=== PATIENT | male | born 1930 | race Caucasian/White ===

== ENCOUNTER 2018-07-11 11:44 | Emergency (ER) | payer OTHER ==
[2018-07-11 13:04] LABS: Protime INR 1.19
[2018-07-11 13:07] LABS: Absolute Lymphocytes (CBC) 1.4 K/uL (0.7-4.9); Absolute Monocytes 1.6 K/uL (0.1-1.3); Absolute Neutrophil 2.1 K/uL (1.8-8.0); Basophils % 0.3 % (0-1.3); Eosinophils % 2.2 % (0-4.4); Hematocrit 25.4 % (39.6-49.0); Lymphocytes % 26.2 % (15.3-44.8); MPV 8.7 fL (7.6-11.3); Monocytes % 31.4 % (3.3-12.3); RBC Red Blood Cell Count 3.27 M/uL (4.33-5.43)
[2018-07-11 13:21] LABS: ALT/SGPT 15 U/L (12-78); AST/SGOT 16 U/L (15-37); Alkaline Phosphatase 72 U/L (45-117); BUN Blood Urea Nitrogen 26 mg/dL (7-18); Bicarbonate 27 mmol/L (21-32); Bilirubin Direct 0.2 mg/dL (0-0.2); Bilirubin Total 0.5 mg/dL (0.2-1.0); Glucose Level 105 mg/dL (74-106); NT PRO-BNP 4991 pg/mL (<450); Potassium 4.8 mmol/L (3.5-5.1); Sodium Level 139 mmol/L (136-145); Troponin (Emerg Dept Use Only) < 0.02 ng/mL (0.0-0.045)
--- NOTE | 2018-07-11 13:23 | RAD REPORT ---
EXAM DESCRIPTION: CT - Head Brain Wo Cont - 07/11/2018 12:58 pm CLINICAL HISTORY: Near syncope Headache, syncope, drowsiness COMPARISON: Head angio dated 01/03/2017; Head Brain Wo Cont dated 01/01/2017 TECHNIQUE: All CT scans are performed using dose optimization technique as appropriate and may inclu de automated exposure control or mA/KV adjustment according to patient size. 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 The paranasal sinuses and mastoids are clear. The calvarium is intact. IMPRESSION: No acute intracranial abnormality. 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
[2018-07-11 13:40] LABS: Anisocytosis 3+; Blood Morphology Comment NOTED (NOT SEEN); Hypochromasia 2+; Platelet Estimate DECR
[2018-07-11] MEDS ORDERED: NA CHLORIDE 0.9% 1,000 ML ONE (13:53)
--- NOTE | 2018-07-11 14:03 | RAD REPORT ---
EXAM DESCRIPTION: Miguelina Single View07/11/2018 1:38 pm CLINICAL HISTORY: Chest pain COMPARISON: 2017 FINDINGS: The lungs appear clear of acute infiltrate. The heart is normal size. A battery pack over lies the left chest IMPRESSION: No acute abnormalities displayed
--- NOTE | 2018-07-11 15:42 | EDPHYS ---
Physician Documentation [facility] Name: Avtar Hanley Age: 87 yrs Sex: Male : 1930 Arrival Date: 07/11/2018 Time: 12:09 Bed 5 Private MD: ED Physician Malcom Sargent HPI: 07/11 13:00 This 87 yrs old Male presents to ER via EMS with complaints of Near Syncope. pm1 13:06 The patient has experienced near-syncope, felt faint. Onset: The symptoms/episode pm1 began/occurred just prior to arrival. Duration: This was a single episode. Context: the episode(s) was witnessed, [facility] and reported to the ER with near syncopal event with hypotension, occurred while the patient was sitting, Just prior to the episode the patient experienced no apparent symptoms. Associated injury: The patient did not suffer any apparent associated injury. Associated signs and symptoms: Pertinent negatives: abdominal pain, blurred vision, chest pain, diaphoresis, headache, palpitations, shortness of breath. Current symptoms: Currently, the patient is not experiencing any symptoms. The patient has been recently seen by a physician: the patient's primary care provider, with different complaint(s), near syncopal event happened while checking out from PCP office. Patient just released from rehab center. Patient has not been eating or drinking well per patient and family at the rehab center. Historical: - Allergies: 12:20 No Known Allergies; hb - Home Meds: 12:20 aspirin 81 mg Oral TbEC 1 tab once daily [Active]; hydrochlorothiazide 25 mg Oral tab 1 hb tab once daily [Active]; hydroxyurea 500 mg Oral cap every 3 days [Active]; losartan 100 mg Oral tab 1 tab once daily [Active]; magnesium oxide 400 mg Oral tab nightly [Active]; omeprazole 20 mg Oral cpDR 1 cap once daily [Active]; Vitamin B-12 100 mcg Oral tab daily [Active]; doxycycline hyclate 100 mg Oral cap twice a day [Active]; metoprolol tartrate 25 mg Oral tab 0.5 tab 2 times per day [Active]; loratadine 10 mg oral tab 1 tab once daily [Active]; phytonadione (vitamin K1) oral daily [Active]; ranitidine HCl 150 mg Oral cap 1 cap once daily [Active]; rifampin 300 mg Oral cap 2 times per day [Active]; rosuvastatin 5 mg oral tab 1 tab once daily [Active]; sildenafil 20 mg oral tab [Active]; - PMHx: 12:20 Hypertension; hb - PSHx: 12:20 None; hb - Immunization history:: Adult Immunizations up to date. - Social history:: Smoking status: Patient/guardian denies using tobacco. - Ebola Screening: : No symptoms or risks identified at this time. ROS: 13:06 Constitutional: Negative for fever, chills, and weight loss, Eyes: Negative for injury, pm1 pain, redness, and discharge, ENT: Negative for injury, pain, and discharge, Neck: Negative for injury, pain, and swelling, Cardiovascular: Negative for chest pain, palpitations, and edema, Respiratory: Negative for shortness of breath, cough, wheezing, and pleuritic chest pain, Abdomen/GI: Negative for abdominal pain, nausea, vomiting, diarrhea, and constipation, Back: Negative for injury and pain, : Negative for injury, bleeding, discharge, and swelling, MS/Extremity: Negative for injury and deformity, Skin: Negative for injury, rash, and discoloration. 13:06 Neuro: Positive for near syncope, Negative for dizziness, headache, loss of consciousness. Exam: 13:06 Abdomen/GI: Inspection: abdomen appears normal, Bowel sounds: normal, Palpation: pm1 abdomen is soft and non-tender, in all quadrants. 13:06 Constitutional: This is a well developed, well nourished patient who is awake, alert, and in no acute distress. Head/Face: Normocephalic, atraumatic. Eyes: Pupils equal round and reactive to light, extra-ocular motions intact. Lids and lashes normal. Conjunctiva and sclera are non-icteric and not injected. Cornea within normal limits. Periorbital areas with no swelling, redness, or edema. ENT: Nares patent. No nasal discharge, no septal abnormalities noted. Tympanic membranes are normal and external auditory canals are clear. Oropharynx with no redness, swelling, or masses, exudates, or evidence of obstruction, uvula midline. Mucous membranes moist. Neck: Trachea midline, no thyromegaly or masses palpated, and no cervical lymphadenopathy. Supple, full range of motion without nuchal rigidity, or vertebral point tenderness. No Meningismus. Chest/axilla: Normal chest wall appearance and motion. Nontender with no deformity. No lesions are appreciated. Cardiovascular: Regular rate and rhythm with a normal S1 and S2. No gallops, murmurs, or rubs. Normal PMI, no JVD. No pulse deficits. Respiratory: Lungs have equal breath sounds bilaterally, clear to auscultation and percussion. No rales, rhonchi or wheezes noted. No increased work of breathing, no retractions or nasal flaring. Back: No spinal tenderness. No costovertebral tenderness. Full range of motion. Skin: Warm, dry with normal turgor. Normal color with no rashes, no lesions, and no evidence of cellulitis. MS/ Extremity: Pulses equal, no cyanosis. Neurovascular intact. Full, normal range of motion. 13:06 Neuro: Orientation: is normal, Cerebellar function: normal finger to nose testing, Motor: moves all fours, Sensation: no obvious gross deficits. Vital Signs: 12:10 BP 119 / 49; Pulse 64; Resp 16; Temp 98.2; Pulse Ox 100% on R/A; Pain 0/10; hb 12:45 BP 143 / 55; Pulse 64; Resp 15; Pulse Ox 100% on R/A; hb 12:55 BP 143 / 55 Supine; Pulse 68; hb 13:05 BP 98 / 34 Sitting; Pulse 81; hb 13:10 BP 89 / 39 Standing; Pulse 89; hb 14:15 BP 167 / 73 Supine; Pulse 79; hb 14:20 BP 136 / 75 Standing; Pulse 92; hb 14:25 BP 157 / 63 Sitting; Pulse 85; hb MDM: 12:16 Patient medically screened. pm1 14:22 ED course: Patient with known bladder cancer diagnosed 2 months ago. Surgical removal pm1 performed at the [facility] but patient is not a candidate for chemotherapy or radiation therapy. Also with know recent anemia. Currently taking iron supplementation. Denies any rectal bleeding or dark stool. 15:39 Data reviewed: vital signs. Data interpreted: Pulse oximetry: on room air is 100 %. pm1 Interpretation: normal. Counseling: I had a detailed discussion with the patient and/or guardian regarding: the historical points, exam findings, and any diagnostic results supporting the discharge/admit diagnosis, lab results, radiology results, the need for outpatient follow up, to return to the emergency department if symptoms worsen or persist or if there are any questions or concerns that arise at home. 07/11 12:39 Order name: Basic Metabolic Panel; Complete Time: 13:33 pm07/11 12:39 Order name: CBC with Diff pm07/11 12:39 Order name: LFT's; Complete Time: 13:33 pm07/11 12:39 Order name: Magnesium; Complete Time: 13:33 pm07/11 12:39 Order name: NT PRO-BNP; Complete Time: 13:33 pm07/11 12:39 Order name: PT-INR; Complete Time: 13:15 pm07/11 12:39 Order name: CT Head Brain wo Cont; Complete Time: 13:33 pm07/11 12:39 Order name: Troponin (emerg Dept Use Only); Complete Time: 13:33 pm07/11 12:39 Order name: XRAY Chest (1 view); Complete Time: 14:09 pm07/11 12:39 Order name: EKG; Complete Time: 12:41 pm07/11 12:39 Order name: Cardiac monitoring; Complete Time: 13:08 pm07/11 12:39 Order name: EKG - Nurse/Tech; Complete Time: 12:57 pm07/11 13:34 Order name: Manual Differential EDMS 07/11 12:39 Order name: IV Saline Lock; Complete Time: 12:57 pm07/11 12:39 Order name: Labs collected and sent; Complete Time: 12:57 pm07/11 12:39 Order name: O2 Per Protocol; Complete Time: 13:17 pm07/11 12:39 Order name: O2 Sat Monitoring; Complete Time: 13:17 pm07/11 12:39 Order name: Orthostatic Blood Pressure; Complete Time: 13:14 pm07/11 14:25 Order name: Orthostatic Blood Pressure; Complete Time: 14:38 pm1 Administered Medications: 12:35 Drug: NS 0.9% 1000 ml Route: IV; Rate: 1000 ml; Site: right antecubital; hb 13:40 Follow up: Response: No adverse reaction; IV Status: Completed infusion; IV Intake: hb 1000ml Disposition: 07/11/18 15:41 Discharged to Home. Impression: Dehydration, Syncope and collapse. - Condition is Stable. - Discharge Instructions: Dehydration, Elderly, Near-Syncope, Rehydration, Elderly. - Medication Reconciliation Form, Thank You Letter, Antibiotic Education, Prescription Opioid Use form. - Follow up: Emergency Department; When: As needed; Reason: Worsening of condition. Follow up: Private Physician; When: 2 - 3 days; Reason: Recheck today's complaints, Continuance of care, Re-evaluation by your physician. - Problem is new. - Symptoms have improved. Addendum: 07/16/2018 10:32 Co-signature as Attending Physician, Malcom Sargent MD I agree with the assessment and k dr plan of care. Signatures: Dispatcher [employer] EDMS Malcom Sargent MD MD kdr Michael Holley NP ASSISTANT DEAN OF STUDENTS pm1 Nika Evans RN RN hb Corrections: (The following items were deleted from the chart) 07/11 16:07 15:41 07/11/2018 15:41 Discharged to Home. Impression: Dehydration; Syncope and hb collapse. Condition is Stable. Forms are Medication Reconciliation Form, Thank You Letter, Antibiotic Education, Prescription Opioid Use. Follow up: Emergency Department; When: As needed; Reason: Worsening of condition. Follow up: Private Physician; When: 2 - 3 days; Reason: Recheck today's complaints, Continuance of care, Re-evaluation by your physician. Problem is new. Symptoms have improved. pm1
--- NOTE | 2018-07-11 15:42 | ER ---
Nurse's Notes [facility] Name: Avtar Hanley Age: 87 yrs Sex: Male : 1930 Arrival Date: 07/11/2018 Time: 12:09 Bed 5 Private MD: Diagnosis: Dehydration;Syncope and collapse Presentation: 07/11 12:10 Presenting complaint: EMS states: Near syncopal episode while sitting in wheelchair at the [facility]. BGL 98, VS WNL. VAN NEGATIVE. Transition of care: patient was not received from another setting of care. Onset of symptoms was July 11, 2018. Risk Assessment: Do you want to hurt yourself or someone else? Patient reports no desire to harm self or others. Initial Sepsis Screen: Does the patient meet any 2 criteria? No. Patient's initial sepsis screen is negative. Does the patient have a suspected source of infection? No. Patient's initial sepsis screen is negative. Care prior to arrival: None. 12:10 Method Of Arrival: EMS: [facility] 12:10 Acuity: KEIRA 3 Triage Assessment: 12:15 General: Appears in no apparent distress. Behavior is calm, cooperative. Pain: Denies hb pain. EENT: No deficits noted. No signs and/or symptoms were reported regarding the EENT system. Neuro: Level of Consciousness is awake, alert, obeys commands, Oriented to person, place, time, situation. Cardiovascular: Heart tones S1 S2 present Capillary refill < 3 seconds Patient's skin is warm and dry. Respiratory: Airway is patent Respiratory effort is even, unlabored, Respiratory pattern is regular, symmetrical, Breath sounds are clear bilaterally. GI: No signs and/or symptoms were reported involving the gastrointestinal system. : No signs and/or symptoms were reported regarding the genitourinary system. Derm: Skin is intact, is healthy with good turgor. Musculoskeletal: No signs and/or symptoms reported regarding the musculoskeletal system. Historical: - Allergies: 12:20 No Known Allergies; hb - Home Meds: 12:20 aspirin 81 mg Oral TbEC 1 tab once daily [Active]; hydrochlorothiazide 25 mg Oral tab 1 hb tab once daily [Active]; hydroxyurea 500 mg Oral cap every 3 days [Active]; losartan 100 mg Oral tab 1 tab once daily [Active]; magnesium oxide 400 mg Oral tab nightly [Active]; omeprazole 20 mg Oral cpDR 1 cap once daily [Active]; Vitamin B-12 100 mcg Oral tab daily [Active]; doxycycline hyclate 100 mg Oral cap twice a day [Active]; metoprolol tartrate 25 mg Oral tab 0.5 tab 2 times per day [Active]; loratadine 10 mg oral tab 1 tab once daily [Active]; phytonadione (vitamin K1) oral daily [Active]; ranitidine HCl 150 mg Oral cap 1 cap once daily [Active]; rifampin 300 mg Oral cap 2 times per day [Active]; rosuvastatin 5 mg oral tab 1 tab once daily [Active]; sildenafil 20 mg oral tab [Active]; - PMHx: 12:20 Hypertension; hb - PSHx: 12:20 None; hb - Immunization history:: Adult Immunizations up to date. - Social history:: Smoking status: Patient/guardian denies using tobacco. - Ebola Screening: : No symptoms or risks identified at this time. Screenin:30 Abuse screen: Denies threats or abuse. Denies injuries from another. Nutritional hb screening: No deficits noted. Tuberculosis screening: No symptoms or risk factors identified. Fall Risk Total Emery Fall Scale indicates Low Risk Score (25-44 pts). Fall prevention measures have been instituted. Side Rails Up X 2 Frequent Obs/Assesments occuring Family Present and informed to notify staff if they need to leave bedside As available Patient and Family Educated on Fall Prevention Program and strategies. Assessment: 12:15 General: SEE TRIAGE ASSESSMENT. hb 13:00 Reassessment: Patient appears in no apparent distress at this time. Patient and/or hb family updated on plan of care and expected duration. Pain level reassessed. Patient is alert, oriented x 3, equal unlabored respirations, skin warm/dry/pink. 14:00 Reassessment: Patient appears in no apparent distress at this time. Patient and/or hb family updated on plan of care and expected duration. Pain level reassessed. Patient is alert, oriented x 3, equal unlabored respirations, skin warm/dry/pink. 15:00 Reassessment: Patient appears in no apparent distress at this time. Patient and/or hb family updated on plan of care and expected duration. Pain level reassessed. Patient is alert, oriented x 3, equal unlabored respirations, skin warm/dry/pink. Patient denies pain at this time. Patient states symptoms have improved. Vital Signs: 12:10 BP 119 / 49; Pulse 64; Resp 16; Temp 98.2; Pulse Ox 100% on R/A; Pain 0/10; hb 12:45 BP 143 / 55; Pulse 64; Resp 15; Pulse Ox 100% on R/A; hb 12:55 BP 143 / 55 Supine; Pulse 68; hb 13:05 BP 98 / 34 Sitting; Pulse 81; hb 13:10 BP 89 / 39 Standing; Pulse 89; hb 14:15 BP 167 / 73 Supine; Pulse 79; hb 14:20 BP 136 / 75 Standing; Pulse 92; hb 14:25 BP 157 / 63 Sitting; Pulse 85; hb ED Course: 12:09 Patient arrived in ED. hb 12:11 Triage completed. hb 12:11 Arm band placed on. hb 12:15 Patient has correct armband on for positive identification. Bed in low position. Call hb light in reach. Side rails up X2. 12:16 Michael Holley NP is PHCP. pm1 12:16 Malcom Sargent MD is Attending Physician. pm1 12:54 EKG done, by audio/video technician. reviewed by Michael Holley NP. at1 12:57 Initial lab(s) drawn, by nc, sent to lab. Inserted saline lock: 20 gauge in right em1 antecubital area, using aseptic technique. Blood collected. 12:58 CT Head Brain wo Cont In Process Unspecified. EDMS 13:01 Nika Evans, RN is Primary Nurse. hb 13:38 XRAY Chest (1 view) In Process Unspecified. EDMS 16:05 No provider procedures requiring assistance completed. IV discontinued, intact, hb bleeding controlled, No redness/swelling at site. Pressure dressing applied. Administered Medications: 12:35 Drug: NS 0.9% 1000 ml Route: IV; Rate: 1000 ml; Site: right antecubital; hb 13:40 Follow up: Response: No adverse reaction; IV Status: Completed infusion; IV Intake: hb 1000ml Intake: 13:40 IV: 1000ml; Total: 1000ml. hb Outcome: 15:41 Discharge ordered by . pm1 16:05 Discharged to home via wheelchair, with family. hb 16:05 Condition: stable 16:05 Discharge instructions given to patient, family, Instructed on discharge instructions, follow up and referral plans. medication usage, Demonstrated understanding of instructions, follow-up care, medications. 16:07 Patient left the ED. hb Signatures: Dispatcher [employer] EDMS Tien Ceja em1 Louisa Barth, migration agent EKG Tat1 Michael Holley, SHELL SHOP SUPERVISOR SHELL SHOP SUPERVISOR pm1 Nika Evans, RN RN hb Corrections: (The following items were deleted from the chart) 12:21 12:10 Presenting complaint: EMS states: Near syncopal episode while sitting in hb wheelchair at the [facility]. BGL 98, VS WNL. hb 13:16 13:00 BP 143 / 55; Pulse 64bpm; Resp 15bpm; Pulse Ox 100% RA; hb hb
--- NOTE | 2018-07-12 06:44 | EKG ---
Test Date: 2018-07-11 Test Time: 12:49:18 Belt Cutter: LALITO MEASUREMENT RESULTS: Intervals: Rate: 70 WV: 124 QRSD: 132 QT: 454 QTc: 490 [place]: P: 69 WV: 124 QRS: 57 T: -22 INTERPRETIVE STATEMENTS: Sinus rhythm with premature atrial complexes Right bundle branch block Abnormal ECG Compared to ECG 01/01/2017 09:53:40 Atrial premature complex(es) now present Sinus bradycardia no longer present Electronically Signed On 07-12-18 06:42:34 CDT by Bret Hennessy
== END 2018-07-11 16:07 | disposition home or self-care (01) ==
LOC: ER 11:44
DX: E86.0 Dehydration (principal); R55 Syncope and collapse; I10 Essential (primary) hypertension; Z79.82 Long term (current) use of aspirin
CPT/HCPCS: 36415; 70450; 71045; 80048; 80076; 83735; 83880; 84484; 85025; 85610; 93005; 96360; 99284; J7030

== ENCOUNTER 2018-08-17 09:44 | Emergency (ER) | payer OTHER ==
[2018-08-17 10:49] LABS: Protime INR 1.33
[2018-08-17] MEDS ORDERED: NA CHLORIDE 0.9% 500 ML ONE (10:53)
[2018-08-17] MEDS ORDERED: ASPIRIN 81 MG CHEWABLE TABLET ONE (10:53)
--- NOTE | 2018-08-17 11:01 | RAD REPORT ---
EXAM DESCRIPTION: CT - Head Brain Wo Cont - 08/17/2018 10:40 am CLINICAL HISTORY: WEAKNESS Headache, drowsiness COMPARISON: Head Brain Wo Cont dated 07/11/2018; Head angio dated 01/03/2017 TECHNIQUE: All CT scans are performed using dose optimization technique as appropriate and may inclu de automated exposure control or mA/KV adjustment according to patient size. FINDINGS: No intracranial hemorrhage, hydrocephalus or extra-axial fluid collection.No areas of brai n edema or evidence of midline shift. 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 The paranasal sinuses and mastoids are clear. The calvarium is intact. Vertebral arteries are calcifi ed. IMPRESSION: No acute intracranial abnormality.
[2018-08-17 11:18] LABS: Absolute Lymphocytes (CBC) 5.6 K/uL (0.7-4.9); Absolute Monocytes 50.1 K/uL (0.1-1.3); Absolute Neutrophil 0.9 K/uL (1.8-8.0); Eosinophils % 0.4 % (0-4.4); Hematocrit 22.2 % (39.6-49.0); Lymphocytes % 9.9 % (15.3-44.8); MPV 7.2 fL (7.6-11.3); Monocytes % 88.1 % (3.3-12.3); RBC Red Blood Cell Count 2.75 M/uL (4.33-5.43)
[2018-08-17 11:22] LABS: Bilirubin Direct 0.3 mg/dL (0-0.2); Bilirubin Total 1.3 mg/dL (0.2-1.0); Magnesium 1.7 mg/dL (1.8-2.4); Potassium 4.9 mmol/L (3.5-5.1)
[2018-08-17 11:23] LABS: Troponin (Emerg Dept Use Only) 0.98 ng/mL (0.0-0.045)
--- NOTE | 2018-08-17 12:03 | RAD REPORT ---
EXAM DESCRIPTION: RAD - Chest Single View - 08/17/2018 11:43 am CLINICAL HISTORY: CHEST PAIN Chest pain. COMPARISON: Chest Single View dated 07/11/2018; Chest Single View dated 01/01/2017 FINDINGS: Portable technique limits examination quality. The lungs are grossly clear. The heart is moderately enlarged in size with aortic atherosclerosis not ed. No displaced fractures. IMPRESSION: No acute intrathoracic process suspected.
[2018-08-17] MEDS ORDERED: MAGNESIUM SULFATE 1 gm IVPB 1 GM/100 ML BAG IV ONE (12:09)
[2018-08-17] MEDS ORDERED: NA CHLORIDE 0.9% 1,000 ML ONE (12:09)
--- NOTE | 2018-08-17 13:12 | EDPHYS ---
Physician Documentation [facility] Name: Avtar Hanley Age: 88 yrs Sex: Male : 1930 Arrival Date: 08/17/2018 Time: 09:45 Bed 5 Private MD: ED Physician Malocm Sargent HPI: 08/17 10:00 This 88 yrs old Male presents to ER via Wheelchair with complaints of jmm Shortness Of Breath, Chest Pain, Palpitations. 10:00 Onset: The symptoms/episode began/occurred this morning, at 06:00. Duration: The jmm symptoms are continuous. This is an 88 year old male with a history of anemia, bladder cancer, htn, cva, renal insufficiency that presents to the ED with complaints of chest pain beginning this morning. Patient has had ongoing weakness and shortness of breath due to anemia. . 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 - Social history:: Smoking status: Patient/guardian denies using tobacco. - Ebola Screening: : No symptoms or risks identified at this time. ROS: 10:37 Constitutional: Negative for fever, chills, and weight loss. jmm 10:37 Cardiovascular: Positive for chest pain. 10:37 Respiratory: Positive for shortness of breath. 10:37 Neuro: Positive for weakness. 10:37 All other systems are negative. Exam: 10:37 Constitutional: This is a well developed, well nourished patient who is awake, alert, jmm and in no acute distress. Head/Face: atraumatic. Eyes: EOMI, no conjunctival erythema appreciated ENT: Moist Mucus Membranes Neck: Trachea midline, Supple Chest/axilla: Normal chest wall appearance and motion. 10:37 Cardiovascular: Rate: normal, Rhythm: regular. 10:37 Respiratory: the patient does not display signs of respiratory distress, Respirations: normal, Breath sounds: are clear throughout. 10:37 Abdomen/GI: Inspection: abdomen appears normal. 10:37 Back: pain, is absent. 10:37 Musculoskeletal/extremity: ROM: intact in all extremities. 10:37 Skin: Appearance: Color: normal in color. 10:37 Neuro: Orientation: is normal, Mentation: is normal, Memory: is normal. 10:37 Psych: Behavior/mood is pleasant, cooperative. 11:56 ECG was reviewed by the Attending Physician. [facility] Vital Signs: 09:53 BP 95 / 42; Pulse 97; Resp 16; Pulse Ox 100% on R/A; Weight 63.96 kg; Height 5 ft. 9 la1 in. (175.26 cm); 10:31 BP 98 / 47; Pulse 83; Resp 21; Pulse Ox 96% ; bp 11:07 BP 80 / 38; Pulse 74; Resp 16; Temp 97.7; Pulse Ox 97% on R/A; la1 11:45 BP 108 / 34; Pulse 79; Resp 16; Pulse Ox 96% on R/A; la1 12:46 BP 97 / 41; Pulse 77; Resp 16; Pulse Ox 95% on R/A; la1 13:31 BP 92 / 41; Pulse 75; Resp 18; Pulse Ox 96% on R/A; la1 14:06 BP 99 / 44; Pulse 77; Resp 16; Pulse Ox 94% on R/A; la1 09:53 Body Mass Index 20.82 (63.96 kg, 175.26 cm) la1 MDM: 10:17 Patient medically screened. [facility] 11:53 Data reviewed: vital signs, nurses notes, lab test result(s), EKG. Counseling: I had a [facility] detailed discussion with the patient and/or guardian regarding: the historical points, exam findings, and any diagnostic results supporting the discharge/admit diagnosis, radiology results, the need to transfer to another facility. ED course: Pain is relieved in the ED. ASA administered. VS stable. H/H is wnl according to the family. Guac is negative. . 13:09 Data reviewed: radiologic studies, plain films. ED course: I discussed the patient with [facility] Dr. Burton whom accepted transfer. 08/17 10:17 Order name: Basic Metabolic Panel; Complete Time: 11:32 [facility] 08/17 10:17 Order name: CBC with Diff [facility] 08/17 11:36 Interpretation: WBC 56.9. [facility] 08/17 10:17 Order name: LFT's; Complete Time: 11:32 [facility] 08/17 10:17 Order name: Magnesium; Complete Time: 11:32 [facility] 08/17 10:17 Order name: NT PRO-BNP; Complete Time: 11:32 [facility] 08/17 10:17 Order name: PT-INR; Complete Time: 11:16 [facility] 08/17 10:17 Order name: Troponin (emerg Dept Use Only); Complete Time: 11:32 [facility] 08/17 10:17 Order name: XRAY Chest (1 view); Complete Time: 12:05 [facility] 08/17 10:17 Order name: Type And Screen; Complete Time: 12:22 [facility] 08/17 10:17 Order name: CT Head Brain wo Cont; Complete Time: 11:03 [facility] 08/17 10:19 Order name: Occult Blood--Ancillary; Complete Time: 11:01 08/17 11:21 Order name: Manual Differential [facility] 08/17 12:31 Order name: ABO/RH no charge; Complete Time: 14:19 [facility] 08/17 10:17 Order name: EKG; Complete Time: 10:19 [facility] 08/17 10:17 Order name: Cardiac monitoring; Complete Time: 10:18 [facility] 08/17 10:17 Order name: EKG - Nurse/Tech; Complete Time: 10:18 [facility] 08/17 10:17 Order name: IV Saline Lock; Complete Time: 10:41 [facility] 08/17 10:17 Order name: Labs collected and sent; Complete Time: 10:41 [facility] 08/17 10:17 Order name: O2 Per Protocol; Complete Time: 10:41 [facility] 08/17 10:17 Order name: O2 Sat Monitoring; Complete Time: 10:41 [facility] EC:56 Rate is 97 beats/min. Rhythm is regular. QRS [place] is Normal. QT interval is normal. T jmm waves are Inverted in leads V1, V2. No ST changes noted. Administered Medications: 11:00 Drug: Aspirin Chewable Tablet 324 mg Route: PO; la1 14:08 Follow up: Response: No adverse reaction la1 11:00 Drug: NS 0.9% 500 ml Route: IV; Rate: bolus; Site: right forearm; la1 12:00 Follow up: IV Status: Completed infusion; IV Intake: 500ml la1 12:00 Drug: NS 0.9% 1000 ml Route: IV; Rate: 75 ml/hr; Site: right forearm; la1 14:09 Follow up: IV Status: Infusion continued upon transfer la1 12:01 Drug: Magnesium Sulfate 1 grams Route: IVPB; Infused Over: 1 hrs; Site: right forearm; la1 13:00 Follow up: IV Status: Completed infusion; IV Intake: 100ml la1 Disposition: 08/17/18 13:11 Transfer ordered to [facility]. Diagnosis are Non-ST elevation (NSTEMI) myocardial infarction, Acute Leukemia. - Reason for transfer: Higher level of care. - Accepting physician is Dr. Quevedo. - Condition is Stable. - Problem is new. - Symptoms have improved. Addendum: 08/19/2018 06:52 Co-signature as Attending Physician, Malcom Sargent MD I agree with the assessment and k dr plan of care. Signatures: Dispatcher [employer] EDMS Malcom Sargent MD MD [facility] Harris Gonzalez PA PA [facility] Tino Garcia RN RN la1 Corrections: (The following items were deleted from the chart) 08/17 10:38 10:00 This is an 88 year old male with a history of anemia, bladder cancer, htn, cva, jmm renal insufficiency that presents to the ED with complaints of chest pain beginning this morning. Patient has had ongoing weakness and shortness of breath due to anemia. Patient recently received an epo.. [facility] 12: 11:04 Urine Dipstick-Ancillary ordered. [place] [id number] 14:34 13:11 08/17/2018 13:11 Transfer ordered to [address] Diagnosis is Non-ST elevation (NSTEMI) myocardial infarction; Acute Leukemia. Reason for transfer: Higher level of care. Accepting physician is Dr. Quevedo. Condition is Stable. Problem is new. Symptoms have improved. [facility]
--- NOTE | 2018-08-17 13:12 | ER ---
Nurse's Notes [facility] Name: Avtar Hanley Age: 88 yrs Sex: Male : 1930 Arrival Date: 08/17/2018 Time: 09:45 Bed 5 Private MD: Diagnosis: Non-ST elevation (NSTEMI) myocardial infarction;Acute Leukemia Presentation: 08/17 09:52 Presenting complaint: Patient states: Chest pain and SOB since 0600 this morning. la1 Transition of care: patient was not received from another setting of care. Onset of symptoms was August 17, 2018. Risk Assessment: Do you want to hurt yourself or someone else? Patient reports no desire to harm self or others. Initial Sepsis Screen: Does the patient meet any 2 criteria? No. Patient's initial sepsis screen is negative. Does the patient have a suspected source of infection? No. Patient's initial sepsis screen is negative. Care prior to arrival: None. 09:52 Method Of Arrival: Wheelchair la1 09:52 Acuity: KEIRA 2 la1 Triage Assessment: 09:53 General: Appears in no apparent distress. uncomfortable, slender, Behavior is bp cooperative, appropriate for age, anxious. Pain: Complains of pain in chest. EENT: No deficits noted. Neuro: Level of Consciousness is awake, alert, obeys commands, Oriented to Appropriate for age. Cardiovascular: Rhythm is sinus rhythm Chest pain is described as Pain is 6 out of 10 on a pain scale. Respiratory: Reports shortness of breath Onset: The symptoms/episode began/occurred this morning, the patient has mild shortness of breath. GI: No signs and/or symptoms were reported involving the gastrointestinal system. : No signs and/or symptoms were reported regarding the genitourinary system. Derm: No deficits noted. Musculoskeletal: Circulation, motion, and sensation intact. Range of motion: intact in all extremities. 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 - Social history:: Smoking status: Patient/guardian denies using tobacco. - Ebola Screening: : No symptoms or risks identified at this time. Screenin:53 Abuse screen: Denies threats or abuse. Denies injuries from another. Nutritional bp screening: No deficits noted. Tuberculosis screening: No symptoms or risk factors identified. Fall Risk None identified. Assessment: 09:53 General: SEE TRIAGE NOTE. Cardiovascular: Patient's skin is warm and dry. Rhythm is bp sinus rhythm. Respiratory: Airway is patent Respiratory effort is even, unlabored, Breath sounds are diminished. 10:35 Reassessment: PT TO RADIOLOGY. bp 11:10 General: Appears in no apparent distress. Behavior is calm, cooperative. Pain: la1 Complains of pain in chest Pain currently is 5 out of 10 on a pain scale. Neuro: Level of Consciousness is awake, alert. Cardiovascular: Heart tones S1 S2 present. Respiratory: Airway is patent Trachea midline Respiratory effort is even, unlabored, Respiratory pattern is regular, symmetrical, Breath sounds are clear bilaterally. : Parent/caregiver report the patient having Recent UTI. 12:46 Reassessment: No changes from previously documented assessment. Patient and/or family la1 updated on plan of care and expected duration. Pain level reassessed. Patient is alert, oriented x 3, equal unlabored respirations, skin warm/dry/pink. 13:31 Reassessment: Patient appears in no apparent distress at this time. No changes from la1 previously documented assessment. Patient and/or family updated on plan of care and expected duration. Pain level reassessed. Patient is alert, oriented x 3, equal unlabored respirations, skin warm/dry/pink. 14:06 Reassessment: called in to room by daughter who stated that after taking a sip of coke la1 the patient became disoriented and his eyes rolled back, upon walking in room pt awake, alert, slightly confused but quickly back at baseline mental status. 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 Symptoms resolved, ERP at bedside to assess patient. Vital Signs: 09:53 BP 95 / 42; Pulse 97; Resp 16; Pulse Ox 100% on R/A; Weight 63.96 kg; Height 5 ft. 9 la1 in. (175.26 cm); 10:31 BP 98 / 47; Pulse 83; Resp 21; Pulse Ox 96% ; bp 11:07 BP 80 / 38; Pulse 74; Resp 16; Temp 97.7; Pulse Ox 97% on R/A; la1 11:45 BP 108 / 34; Pulse 79; Resp 16; Pulse Ox 96% on R/A; la1 12:46 BP 97 / 41; Pulse 77; Resp 16; Pulse Ox 95% on R/A; la1 13:31 BP 92 / 41; Pulse 75; Resp 18; Pulse Ox 96% on R/A; la1 14:06 BP 99 / 44; Pulse 77; Resp 16; Pulse Ox 94% on R/A; la1 09:53 Body Mass Index 20.82 (63.96 kg, 175.26 cm) la1 ED Course: 09:45 Patient arrived in ED. as 09:49 Sergio Zaragoza, RN is Primary Nurse. bp 09:53 Triage completed. la1 09:53 Patient has correct armband on for positive identification. Bed in low position. Call bp light in reach. Side rails up X2. Adult w/ patient. 09:54 Arm band placed on left wrist. la1 10:04 Harris Gonzalez PA is PHCP. [facility] 10:04 Malcom Sargent MD is Attending Physician. jmm 10:43 CT completed. Patient tolerated procedure well. Patient moved back from CT. bq 10:44 CT Head Brain wo Cont In Process Unspecified. EDMS 11:12 No provider procedures requiring assistance completed. Inserted saline lock: 22 gauge la1 in right forearm, using aseptic technique. Blood collected. 11:21 Notified Nurse Practitioner and/or Physician Classics Teacher of a critical lab result(s), sv WBC-56.9, Hemoglobin-7.0, platelet-44. 11:23 Notified Nurse Practitioner and/or Physician Classics Teacher of a critical lab result(s), ss Troponin 0.98. 11:45 XRAY Chest (1 view) In Process Unspecified. EDMS 11:46 Straight cath inserted, using sterile technique, 16 Fr. Returned no urine output. la1 Patient tolerated well. 11:53 initiated a transfer with Tez at the . A. / faxed over patient chart as requested eb to [phone]. 12:57 connected the emergency room doctor electronic engraver Dr. Mcneal for the [facility] with Harris HOLLOWAY for eb patient transfer consultation. 13:04 administrative approval given by Peter Uribe from the [facility]/ patient has been eb accepted to the [facility] ER by Avtar Bauman/ report to be called to [phone]. 14:34 Patient transferred, IV remains in place. la1 Administered Medications: 11:00 Drug: Aspirin Chewable Tablet 324 mg Route: PO; la1 14:08 Follow up: Response: No adverse reaction la1 11:00 Drug: NS 0.9% 500 ml Route: IV; Rate: bolus; Site: right forearm; la1 12:00 Follow up: IV Status: Completed infusion; IV Intake: 500ml la1 12:00 Drug: NS 0.9% 1000 ml Route: IV; Rate: 75 ml/hr; Site: right forearm; la1 14:09 Follow up: IV Status: Infusion continued upon transfer la1 12:01 Drug: Magnesium Sulfate 1 grams Route: IVPB; Infused Over: 1 hrs; Site: right forearm; la1 13:00 Follow up: IV Status: Completed infusion; IV Intake: 100ml la1 Intake: 12:00 IV: 500ml; Total: 500ml. la1 13:00 IV: 100ml; Total: 600ml. la1 Outcome: 13:11 ER care complete, transfer ordered by MD. tran 14:33 Transferred by ground EMS to [facility] Transfer form completed. la1 X-rays sent w/ patient. 14:33 Condition: stable 14:33 Instructed on the need for transfer. 14:34 Patient left the ED. la1 Signatures: Dispatcher [employer] EDMS Saundra Kilgore, RN Harris Antoine PA PA jmm Quilty, Betty bq Martinez, Amelia as Smirch, Shelby, RN RN ss Attema, Lee, RN RN la1 Peltier, Brian, RN RN bp Botello, Elizabeth eb
[2018-08-17 15:57] LABS: Blood Morphology Comment NOTED (NOT SEEN); Platelet Estimate DECR
[2018-08-17 15:59] LABS: Anisocytosis 3+; Hypochromasia 2+; Polychromasia 1+; Teardrop Cell 2+
[2018-08-17 16:00] LABS: Burr Cells 1+
--- NOTE | 2018-08-17 16:42 | EKG ---
Test Date: 2018-08-17 Test Time: 09:52:16 Restaurant Assistant Manager: AVIVA MEASUREMENT RESULTS: Intervals: Rate: 97 OH: 124 QRSD: 146 QT: 408 QTc: 518 [place]: P: 84 OH: 124 QRS: 70 T: -78 INTERPRETIVE STATEMENTS: Sinus rhythm with premature atrial complexes Right bundle branch block T wave abnormality, consider inferolateral ischemia Abnormal ECG Compared to ECG 07/11/2018 12:49:18 T-wave abnormality now present Electronically Signed On 08-17-18 16:41:46 CDT by Taj House
== END 2018-08-17 14:34 ==
LOC: ER 09:44
DX: I21.4 Non-ST elevation (NSTEMI) myocardial infarction (principal); C95.00 Acute leukemia of unspecified cell type not having achieved remission; I10 Essential (primary) hypertension; Z79.82 Long term (current) use of aspirin; Z85.51 Personal history of malignant neoplasm of bladder
CPT/HCPCS: 36415; 51702; 70450; 71045; 80048; 80076; 82272; 83735; 83880; 84484; 85025; 85610; 86850; 86900; 86901; 93005; 96361; 96365; 99285; J3475; J7030